=== PATIENT | male | born 1965 | race Caucasian/White ===

== ENCOUNTER 2023-02-18 06:38 | Observation (INO) ==
[2023-02-18] MEDS ORDERED: ONDANSETRON INJ 2 MG/ML 2 ML VIAL IV STA (06:48)
[2023-02-18] MEDS ORDERED: fentaNYL citrate PF 100 MCG/2 ML VIAL IV STA (06:48)
[2023-02-18] MEDS ORDERED: fentaNYL citrate PF 100 MCG/2 ML VIAL ONE ×4 (06:50→16:40)
[2023-02-18] MEDS ORDERED: ACETAMINOPHEN 1,000 MG/100 ML VIAL IV STA (06:59)
[2023-02-18] MEDS ORDERED: SODIUM CHLORIDE 0.9% 1000ML 1,000 ML IV SCH ×2 (07:00→17:57)
[2023-02-18 07:08] LABS: Basophils # (auto) 0.05 K/uL (0.00-0.20); Eosinophils # (auto) 0.16 K/uL (0.00-0.50); Eosinophils % (auto) 3.3 %; Hematocrit (blood only) 41.9 % (42.0-52.0); Immature Granulocytes # (auto) 0.03 K/uL (0.01-0.20); Immature Granulocytes % (auto) 0.6 %; Lymphocytes # (auto) 1.05 K/uL (1.20-3.40); Lymphocytes % (auto) 21.6 %; Mean Corpuscular Hemoglobin 29.5 pg (25.0-34.0); Mean Corpuscular Hgb Conc 33.4 g/dL (32.0-36.0); Mean Corpuscular Volume 88.2 fL (80.0-100.0); Monocytes # (auto) 0.39 K/uL (0.11-0.59); Neutrophils # (auto) 3.18 K/uL (1.40-6.50); Neutrophils % (auto) 65.5 %; Platelet Count 181 K/uL (130-400); RDW Coefficient of Variation 13.8 % (11.5-14.5); RDW Standard Deviation 45.1 fL (36.4-46.3); Red Blood Count 4.75 M/uL (4.70-6.10); White Blood Count 4.86 K/ul (4.8-10.8)
[2023-02-18 07:28] LABS: Albumin Globulin Ratio 1.6 (0.9-2); Albumin Level 4.4 gm/dl (3.4-5.0); BUN Creatinine Ratio 28.4 (10-20); Bilirubin,Total 0.8 mg/dl (0.2-1.0); Calcium 9.6 mg/dl (8.6-10.3); Creatinine Clr Calc Pharmacy 93.6 ml/min; Est GFR (Non-African American) 89.8 ml/min; Globulin 2.8 gm/dl (2.5-4.0); Potassium 4.1 mmol/L (3.5-5.1); Total Protein 7.2 gm/dl (6.0-8.3)
--- NOTE | 2023-02-18 07:36 | XRay Report ---
SEMIERECT AP CHEST RADIOGRAPH CLINICAL HISTORY: trauma COMPARISON STUDY: Chest radiograph January 10, 2010. FINDINGS: Lung volumes are normal. There is no pneumothorax or pleural effusion. No airspace opacitie s are present. Pulmonary vascularity is normal. There is mild enlargement of the cardiac silhouette. IMPRESSION: 1. No acute cardiopulmonary findings. 2. Mild enlargement of the cardiac silhouette, possibly technical. ACT 112: Negative or not required by law. Electronically signed by: Gerald De Guzman M.D. 02/18/2023 7:35 AM
--- NOTE | 2023-02-18 07:46 | XRay Report ---
SINGLE VIEW PELVIS; 2 VIEWS LEFT HIP CLINICAL HISTORY: Hip trauma. FINDINGS: AP view of the pelvis with AP and crosstable lateral views of the left hip are compared to study dated 11/21/2019. The skeletal structures are well-mineralized. There is an impacted an minimall y displaced left femoral neck fracture with mild overlying soft tissue edema. No additional acute fra cture is seen involving the bony pelvis or the right hip. There is chronic deformity right proximal f emur with 3 intertrochanteric cortical lag screws in place. The joint spaces of the hips are preserve d. The sacroiliac joints are normal. Surgical clips project over the scrotum. IMPRESSION: Left femoral neck fracture as above. Electronically signed by: Augustine Marcos M.D. 02/18/2023 7:45 AM
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
[2023-02-18] MEDS: fentaNYL citrate PF 100 MCG/2 ML VIAL IV PRN ×4 (08:57→17:04)
--- NOTE | 2023-02-18 10:51 | CT Scan Report ---
CT SCAN OF THE LEFT HIP WITHOUT IV CONTRAST CLINICAL HISTORY: Left hip fracture. COMPARISON STUDY: Radiographs of the left hip dated 02/18/2023. TECHNIQUE: CT scan of the left hip was performed from the bony pelvis to the femoral shaft. Images ar e reviewed in the axial, sagittal, and coronal planes. IV contrast was not administered for this exam ination. 3-D reformats are created and assessed. A dose lowering technique was utilized adhering to t he principles of ALARA. CT DOSE: 464.97 mGy.cm FINDINGS: The skeletal structures are well mineralized. Again seen is an impacted and comminuted frac ture of the left femoral neck with numerous displaced fragments. There is mild superior displacement of the femoral neck as compared to the femoral head. There is overlying soft tissue edema and a small joint effusion. Imaged portions of the left femoral shaft are intact. There is chronic posttraumatic deformity of the left pubic ring. The joint space of the left hip is preserved. No lytic or blastic lesion is seen. The regional musculature is normal in appearance. Surgical clips are noted in the scr otum. No left inguinal adenopathy seen. IMPRESSION: Impacted left femoral neck fracture as above. ACT 112: Negative or not required by law. Dictated: 02/18/2023 9:08 AM Transcribed: 02/18/2023 9:26 AM Eda [id number] [email or web address] Electronically signed by: Augustine Marcos M.D. 02/18/2023 10:49 AM
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
[2023-02-18] MEDS ORDERED: LACTATED RINGER'S 1,000 ML IV SCH (14:00)
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
[2023-02-18] MEDS ORDERED: PROPOFOL IV EMULSION 10 MG/ML 20 ML VIAL IV ONE (14:15)
[2023-02-18] MEDS ORDERED: ROCURONIUM BROMIDE 10 MG/ML 5 ML VIAL IV ONE (14:15)
[2023-02-18] MEDS ORDERED: MIDAZOLAM HCL 1 MG/ML 2ML VIAL ONE (14:15)
[2023-02-18] MEDS ORDERED: LIDOCAINE 2% 2 ML VIAL/AMP(20MG/ML) INFIL ONE (14:15)
[2023-02-18] MEDS ORDERED: BUPIVACAINE/EPINEPHRINE 0.5% MPF 1:200,000 30 ML VIAL ONE (14:21)
[2023-02-18] MEDS ORDERED: DEXAMETHASONE SOD INJ 4 MG/ML VIAL ONE (14:23)
[2023-02-18] MEDS ORDERED: ONDANSETRON INJ 2 MG/ML 2 ML VIAL ONE (14:23)
--- NOTE | 2023-02-18 14:51 | History & Physical Bridge Note ---
Date of Service February 18, 2023 History & Physical Bridge Note I have examined the patient, reviewed the History & Physical and in the interval since the performance of the History & Physical I have noted the following changes of clinical significance: no changes noted
[2023-02-18] MEDS ORDERED: ceFAZolin 2,000 MG/15 ML IV PUSH IV ONE (14:56)
[2023-02-18] MEDS ORDERED: KETOROLAC 30 MG/ML VIAL ONE (15:19)
[2023-02-18] MEDS ORDERED: TRANEXAMIC ACID / 0.7% NACL 1000MG/100ML BAG IV ONE (15:21)
[2023-02-18] MEDS ORDERED: KETAMINE 50 MG/5 ML SYRINGE ONE (15:31)
[2023-02-18] MEDS ORDERED: hydrALAZINE HCL 20 MG/ML VIAL ONE (15:42)
[2023-02-18] MEDS ORDERED: PHENYLEPHRINE 100MCG/ML 5ML SYR ONE (15:58)
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
[2023-02-18] MEDS ORDERED: NALOXONE HCL 0.4 MG/1 ML VIAL/CARP IV PRN ×2 (16:50→17:57)
[2023-02-18] MEDS ORDERED: ONDANSETRON INJ 2 MG/ML 2 ML VIAL IV PRN ×2 (16:50→17:57)
[2023-02-18] MEDS ORDERED: PROMETHAZINE HCL 12.5 MG in SODIUM CHLORIDE 0.9% 50 ML IV PRN (16:50)
[2023-02-18] MEDS ORDERED: FLUMAZENIL 0.1 MG/1 ML 10 ML VIAL IV PRN (16:50)
[2023-02-18] MEDS ORDERED: ATROPINE SULFATE 0.1 MG/ML 10ML SYR IV PRN (16:50)
[2023-02-18] MEDS ORDERED: HYDROmorphone INJ 1 MG/ML SYRINGE IV PRN (16:50)
[2023-02-18] MEDS ORDERED: LABETALOL HCL IV 5 MG/ML 20ML IV PRN (16:50)
[2023-02-18] MEDS ORDERED: ePHEDrine sulfate 50 MG/ML AMP IV PRN (16:50)
--- NOTE | 2023-02-18 17:22 | XRay Report ---
XR hip 1V LT w pelvis CLINICAL HISTORY: IN PACU - Post Surgical TECHNIQUE: 2 views of the left hip and single frontal view of the pelvis were obtained. Comparison: Comparison is made to radiograph 02/18/2023 FINDINGS: Patient is status post total hip arthroplasty with expected postsurgical changes including soft tissu e swelling and subcutaneous emphysema. Right femoral screws are unchanged. IMPRESSION: Expected postoperative appearance status post placement of total hip arthroplasty. ACT 112: Negative or not required by law. Electronically signed by: Guanakito Sanchez M.D. 02/18/2023 5:21 PM
[2023-02-18] MEDS ORDERED: MAGNESIUM HYDROXIDE SUSP 30 ML UDC PO PRN (17:57)
[2023-02-18] MEDS ORDERED: traMADol HCL 50 MG TABLET PO PRN (17:57)
[2023-02-18] MEDS ORDERED: bisacodyL 10 MG SUPP PR PRN (17:57)
[2023-02-18] MEDS ORDERED: ALUMINUM/MAGNESIUM SUSP 30 ML UDC PO PRN (17:57)
[2023-02-18] MEDS ORDERED: METOCLOPRAMIDE HCL INJ 5 MG/ML 2 ML VIAL IV PRN (17:57)
[2023-02-18] MEDS ORDERED: HYDROmorphone INJ 0.5 MG/0.5 ML SYR IV PRN (17:57)
[2023-02-18] MEDS ORDERED: diphenhydrAMINE Capsule 25 MG CAP PO PRN (17:57)
--- NOTE | 2023-02-18 18:03 | Anesthesiology Progress Note ---
Date of Service February 18, 2023 Anesthesia Post Procedure Vital Signs Vital Signs: Temp Pulse Pulse Pulse Resp BP BP 02/18/23 17:45 37.0 C 92 H 20 120/68 02/18/23 17:35 37.5 C 91 H 17 120/65 02/18/23 17:25 90 14 125/65 02/18/23 17:15 92 H 17 152/60 H 02/18/23 17:05 92 H 19 145/78 H 02/18/23 16:55 95 H 16 136/76 02/18/23 16:45 36.5 C 105 H 20 140/67 02/18/23 13:40 36.9 C 78 20 146/85 H 02/18/23 13:30 80 24 134/100 02/18/23 13:00 81 19 147/88 H 02/18/23 12:31 78 23 159/94 H 02/18/23 12:00 79 21 140/95 02/18/23 11:30 79 17 150/95 H 02/18/23 11:00 88 21 138/89 02/18/23 11:12 77 02/18/23 10:30 78 19 130/87 02/18/23 10:00 75 20 138/89 02/18/23 09:30 76 12 134/91 02/18/23 09:00 73 20 149/92 H 02/18/23 08:30 62 17 142/90 H 02/18/23 08:00 69 16 134/93 02/18/23 07:57 55 L 15 134/88 02/18/23 06:44 69 17 154/72 H 02/18/23 06:48 02/18/23 06:44 73 02/18/23 06:41 36.5 C 74 18 154/72 H Pulse Ox O2 Del Method O2 Flow Rate 02/18/23 17:45 94 Room Air 02/18/23 17:35 92 Room Air 02/18/23 17:25 92 Room Air 02/18/23 17:15 94 Room Air 02/18/23 17:05 95 Room Air 02/18/23 16:55 99 Oxymask 8 02/18/23 16:45 97 Oxymask 8 02/18/23 13:40 97 Room Air 02/18/23 13:30 02/18/23 13:00 96 Room Air 02/18/23 12:31 97 Room Air 02/18/23 12:00 97 Room Air 02/18/23 11:30 99 Room Air 02/18/23 11:00 97 Room Air 02/18/23 11:12 02/18/23 10:30 96 02/18/23 10:00 96 02/18/23 09:30 96 02/18/23 09:00 98 02/18/23 08:30 98 02/18/23 08:00 99 02/18/23 07:57 02/18/23 06:44 99 02/18/23 06:48 97 Room Air 02/18/23 06:44 02/18/23 06:41 95 Room Air Pain Intensity Left Hip: Pain Intensity: 3 Transfer of Care Handoff Completed per policy Notes Mental Status: alert / awake / arousable Patient Amnestic to Procedure: Yes Nausea / Vomiting: adequately controlled Pain: adequately controlled Airway Patency, RR, SpO2: stable & adequate BP & HR: stable & adequate Hydration State: stable & adequate Anesthetic Complications: no major complications apparent
[2023-02-18] MEDS: KETOROLAC 30 MG/ML VIAL IV SCH (18:37)
[2023-02-18] MEDS: ASPIRIN 81 MG ECTAB PO SCH (20:14)
[2023-02-18] MEDS: DOCUSATE SODIUM 100 MG CAP PO SCH (20:14)
[2023-02-18 20:30] LABS: Appearance Urine Clear (Clear); Bacteria Urine Automated Negative (Negative); Bilirubin Urine Negative (Negative); Blood Urine Negative (Negative); Color Urine Dark Yellow; Glucose Urine UA Negative (Negative); Ketones Urine 2+ (Negative); Leukocyte Esterase Urine Negative (Negative); Nitrite Urine Negative (Negative); Protein Urine Trace (Negative); RBC Urine Automated 0-4 /hpf (0-4); Specific Gravity Urine 1.029 (1.000-1.030); Urobilinogen Urine Negative (Negative)
[2023-02-18 20:45] LABS: Cast Urine Automated >30 /lpf (0-5); Epithelial Cell Urine Auto 20-30 /lpf (0-5)
[2023-02-18] MEDS ORDERED: SENNA 8.6 MG TAB PO SCH (21:00)
[2023-02-18] MEDS: ACETAMINOPHEN 500 MG TAB PO SCH (22:18)
[2023-02-18] MEDS: ceFAZolin 2000MG 2,000 MG/15 ML SYR IV SCH (22:19)
[2023-02-18] MEDS ORDERED: TRANEXAMIC ACID / 0.7% NACL 1,000 MG/100 ML BAG IV SCH (23:00)
[2023-02-19] MEDS: KETOROLAC 30 MG/ML VIAL IV SCH ×2 (00:29→06:06)
--- NOTE | 2023-02-19 06:03 | Electrocardiogram Report ---
Test Reason : Blood Pressure : / mmHG Vent. Rate : 066 BPM Atrial Rate : 066 BPM P-R Int : 158 ms QRS Dur : 094 ms QT Int : 396 ms P-R-T Axes : 061 076 044 degrees QTc Int : 415 ms Normal sinus rhythm Incomplete right bundle branch block Borderline ECG When compared with ECG of 10-APR-2019 10:45, No significant change was found Confirmed by Gab Medina ([id number]) on 02/19/2023 6:03:13 AM Referred By: REFERRED SELF Confirmed By:Gab Medina
[2023-02-19] MEDS: ACETAMINOPHEN 500 MG TAB PO SCH (06:06)
[2023-02-19] MEDS: ceFAZolin 2000MG 2,000 MG/15 ML SYR IV SCH (06:07)
[2023-02-19 07:00] LABS: Basophils # (auto) 0.01 K/uL (0.00-0.20); Basophils % (auto) 0.1 %; Hematocrit (blood only) 33.1 % (42.0-52.0); Immature Granulocytes # (auto) 0.02 K/uL (0.01-0.20); Immature Granulocytes % (auto) 0.2 %; Lymphocytes # (auto) 0.76 K/uL (1.20-3.40); Lymphocytes % (auto) 7.6 %; Mean Corpuscular Hemoglobin 29.6 pg (25.0-34.0); Mean Corpuscular Hgb Conc 33.2 g/dL (32.0-36.0); Mean Corpuscular Volume 89.2 fL (80.0-100.0); Mean Platelet Volume 10.3 fL (9.4-12.4); Monocytes # (auto) 0.94 K/uL (0.11-0.59); Monocytes % (auto) 9.4 %; Neutrophils # (auto) 8.29 K/uL (1.40-6.50); Neutrophils % (auto) 82.7 %; Platelet Count 159 K/uL (130-400); RDW Coefficient of Variation 13.9 % (11.5-14.5); RDW Standard Deviation 45.4 fL (36.4-46.3); Red Blood Count 3.71 M/uL (4.70-6.10); White Blood Count 10.02 K/ul (4.8-10.8)
[2023-02-19 07:20] VITALS: PULSE 72; TEMP 98.1; O2SAT 97
[2023-02-19 07:39] LABS: BUN Creatinine Ratio 28.9 (10-20); Calcium 8.4 mg/dl (8.6-10.3); Creatinine Clr Calc Pharmacy 98.8 ml/min; Est GFR (Non-African American) 95.8 ml/min; Potassium 4.2 mmol/L (3.5-5.1)
[2023-02-19] MEDS ORDERED: dexAMETHasone 10 MG in SYRINGE 0 ML IV SCH (08:00)
[2023-02-19] MEDS: ASPIRIN 81 MG ECTAB PO SCH (08:23)
[2023-02-19] MEDS: DOCUSATE SODIUM 100 MG CAP PO SCH (08:23)
[2023-02-19] MEDS ORDERED: NON-FORMULARY MEDICATION (Multivitamin Tablet) PO SCH (09:00)
[2023-02-19] MEDS ORDERED: MULTIVITAMIN TAB PO SCH (09:00)
--- NOTE | 2023-02-19 09:08 | Orthopedic Progress Note ---
Date of Service February 19, 2023 Assessment & Plan (1) Closed fracture of left hip: 57-year-old gentleman postop day 1 from left total hip placement foot done for displaced comminuted femoral neck fracture. He is doing quite well. Pain is controlled. Hips located. He is neurologically intact. Plan: 1. DVT prophylaxis including thigh-high teds, SCDs, aspirin twice a day. 2. PT OT. Weight-bear as tolerated. Left total hip protocol. 3. Pain control doing okay with current pain regimen. 4. At disposition plan to discharge to home with home health if he does okay in therapy this morning. Subjective . 57-year-old gentleman postop day 1 from a left total hip replacement done for displaced femoral neck fracture. He is doing quite well this morning. Says his pain is much improved. No chest pain or shortness of breath. Not feeling dizzy or lightheaded. Review of Systems All systems reviewed & are unremarkable except as noted in HPI & below. Physical Exam . Examination reveals a pleasant middle-age male. Sitting in his bedside chair looks comfortable. Examination left hip and leg reveals the dressing to be clean dry and intact. Thigh is soft and supple. He can dorsiflex and plantarflex his foot appropriately. He is neurologically intact. Respiratory normal respiratory effort, lungs clear to auscultation Cardiovascular RRR, no murmur, no edema Gastrointestinal (Abdomen) normal bowel sounds, soft, nontender, no hepatosplenomegaly Results & Data Results & Data Laboratory Results . Hemoglobin is 11.0. Hematocrit 33.1. Electrolytes are stable. Diagnostic Findings . PG Care Time/CCT Total # of Minutes Spent Total Time Spent with Patient: Total time spent is greater than 50% in coordination of care (as documented) at patient's floor/unit and/or counseling patient: Coding Level of Care Code 96426 Post Operative Follow-Up Diagnoses Closed fracture of left hip S72.002A
[2023-02-19 10:20] VITALS: BP 138/78
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
== END 2023-02-19 11:32 | disposition home health service (06) ==
LOC: ED 06:38 → 3E 06:38